=== PATIENT | male | born 1995 | race Caucasian/White ===

== ENCOUNTER 2022-02-23 08:49 | Emergency (ER) | payer OTHER ==
[2022-02-23] MEDS ORDERED: NAPROXEN500 MG PO (10:43)
[2022-02-23] MEDS ORDERED: CYCLOBENZAPRINE10 MG PO (10:43)
== END 2022-02-23 10:53 | disposition home or self-care (01) ==
LOC: FER 08:49
DX: S39.012A Strain of muscle, fascia and tendon of lower back, initial encounter (principal); F17.210 Nicotine dependence, cigarettes, uncomplicated; Z28.310 Unvaccinated for COVID-19
CPT/HCPCS: 72110